=== PATIENT | male | born 1980 | race Two or more races ===

== ENCOUNTER 2018-01-20 00:11 | Emergency (ER) | payer MEDICAID ==
[~2018-01-20] VITALS: Ht 188 cm; Wt 93.0 kg
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
--- NOTE | 2018-01-20 00:58 | NUR ---
Patient discharged to home in stable conditon. Written and verbal after care instructions given. Patient verbalizes understanding of instructions. Pt d/c home w/ prescriptions, all belongings w/ pt., self-ambulated w/o difficulty
[2018-01-20 01:00] VITALS: BP 141/93
== END 2018-01-20 01:01 | disposition home or self-care (01) ==
LOC: ER 00:13
DX: K61.1 Rectal abscess (principal)
CPT/HCPCS: A4663

== ENCOUNTER 2018-09-15 18:16 | Emergency (ER) | payer MEDICAID ==
[~2018-09-15] VITALS: Ht 188 cm; Wt 86.2 kg
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
[2018-09-15] MEDS ORDERED: HYDROCODONE/APAP 5-325MG TABLET PO ONE (19:15)
[2018-09-15] MEDS ORDERED: TDAP DIPH,PERTUSS,TET VAC/PF 0.5 ML DISP.SYRIN IM ONE ×2 (19:15→19:35)
[2018-09-15] MEDS ORDERED: NEOMY/BACITRA/POLYMYXIN B OINT UD PACKET TP ONE ×2 (19:15→19:36)
[2018-09-15] MEDS ORDERED: HYDROCODONE/APAP 5-325MG TABLET ONE (19:18)
--- NOTE | 2018-09-15 19:20 | NUR ---
Patient transported to CT in stable condition.
--- NOTE | 2018-09-15 19:35 | NUR ---
Patient back in room from CT
[2018-09-15 20:53] VITALS: BP 138/85
--- NOTE | 2018-09-15 20:54 | NUR ---
Patient discharged to home in stable conditon. Written and verbal after care instructions given. Patient verbalizes understanding of instructions. Patient ambulated with stable gait.
== END 2018-09-15 20:54 | disposition home or self-care (01) ==
LOC: ER 18:17
DX: S00.83XA Contusion of other part of head, initial encounter (principal); S50.12XA Contusion of left forearm, initial encounter; S80.12XA Contusion of left lower leg, initial encounter; S70.212A Abrasion, left hip, initial encounter; V03.99XA Pedestrian with other conveyance injured in collision with car, pick-up truck or van, unspecified whether traffic or nontraffic accident, initial encounter; Y93.89 Activity, other specified; Y92.89 Other specified places as the place of occurrence of the external cause; Y99.8 Other external cause status
CPT/HCPCS: 70450; 72125; 73080; 73590; 90715; A4663